=== PATIENT | male | born 1960 | race Caucasian/White ===

== ENCOUNTER 2017-11-23 13:33 | Emergency (ER) | payer OTHER ==
[2017-11-23 13:38] VITALS: TEMP 98.2
--- NOTE | 2017-11-23 14:01 | CPEKG ---
Heart Rate: 87 RR Interval: 690 P-R Interval: 172 QRSD Interval: 88 QT Interval: 384 QTC Interval: 462 P [place]: 45 QRS [place]: -16 T Wave [place]: 27 EKG Severity - OTHERWISE NORMAL ECG - EKG Impression: SINUS RHYTHM EKG Impression: BORDERLINE LEFT AXIS DEVIATION Electronically Signed By: Chapo Rowe 23-Nov-2017 14:28:20
--- NOTE | 2017-11-23 14:05 | EDPHY ---
H & P Time Seen by Provider: 11/23/17 14:05 HPI/ROS: Chief complaint. Chest discomfort HPI. 57-year-old male presents emergency department with chest discomfort. He describes dull pressure left anterior chest discomfort that began yesterday morning. It was present through the day. Was present through the night. When he woke up this morning he thought was gone and then his symptoms recurred again at 9:00 a.m. This morning and have been present. No radiation. No shortness of breath. Discomfort is 1-2 on a scale of 10. He has ridden his bike this morning doing errands and he had no change in his discomfort with riding his bike. No change with breathing or position or movement. Again no change with exertion. He has had previous symptoms about 7 years ago and a normal stress test. he has had no fever or cough. No unusual leg pain or swelling. No abdominal pain. ROS Constitutional. no fever/chills, no weakness Eyes. no problems with vision ENT. no sore throat, no nasal drainage Cardiovascular. Left anterior chest discomfort Respiratory. no shortness of breath, no cough Abdominal. no abdominal pain, no nausea/vomiting, no diarrhea . no problems urinating MS. no calf pain/swelling, no neck/back pain, no joint pain Skin. no rash Lymph. no swollen glands Neuro. no headache, no dizziness, no difficulty walking or with speech Past Medical/Surgical History: Denies past medical history Father NC age 32. No heart disease in his siblings Social History: , nonsmoker, no alcohol Smoking Status: Never smoked Physical Exam: General Appearance: Alert well-developed the male mild distress vital signs are stable Eyes: Pupils equal and round no pallor or injection. ENT, Mouth: Mucous membranes are moist. Respiratory: There are no retractions, lungs are clear to auscultation. Cardiovascular: Regular rate and rhythm. Gastrointestinal: Abdomen is soft and nontender, no masses, bowel sounds normal. Neurological: Awake and alert, sensory and motor exams grossly normal. Skin: Warm and dry, no rashes. Musculoskeletal: Neck is supple nontender. Extremities symmetrical, full range of motion. Psychiatric: Patient is oriented X 3, there is no agitation. Constitutional: Initial Vital Signs Temperature (C) 36.8 C 11/23/17 13:35 Heart Rate 95 11/23/17 13:35 Respiratory Rate 18 11/23/17 13:35 Blood Pressure 124/92 H 11/23/17 13:35 O2 Sat (%) 95 11/23/17 13:35 O2 Delivery Mode Room Air Allergies/Adverse Reactions: No Known Allergies Allergy (Unverified 11/23/17 13:35) Home Medications: Medication Instructions Recorded NK [No Known Home Meds] 11/23/17 Medical Decision Making - Diagnostics EKG Interpretation: EKG interpreted by me shows normal sinus rhythm normal interval. There is left axis deviation. QRS is otherwise normal. There is no significant ST elevation or depression. No arrhythmia. The rate is 87 No previous EKGs for comparison Imaging Results: Imaging Impressions Chest X-Ray 11/23/17 14:14 IMPRESSION: No evidence for acute cardiopulmonary abnormality. One-view chest x-ray interpreted by me is normal Procedures: IV normal saline, monitor ED Course/Re-evaluation: Re-evaluation 3:35 p.m.. Patient is stable. He and I discussed imaging lab EKG findings. We did treatment plan including criteria for return importance of follow-up and further evaluation. He expresses Understanding and agreement. Patient is offered admission as he is leaving for [place] in the morning for further evaluation. He feels that is not necessary and declines. We discussed risks and benefits of this Differential Diagnosis: Patient has had more than 24 hr of continuous chest discomfort. He has a normal workup including normal troponin and EKG. His since are not worse with exertion or breathing. He has had previous stress test that was normal. He does have strong family history but otherwise no personal history of risk factors. While I think that the workup is normal and patient is safe for discharge at this point I did encourage him to follow up with Cardiology in 1 or 2 days for further evaluation. Again the patient is leaving for [place] tomorrow and is encouraged to return tonight for worsening symptoms, follow-up in [place] for worsening symptoms, and follow up with Cardiology upon his return home. - Data Points Laboratory Results: Laboratory Results 11/23/17 13:50 11/23/17 13:50 11/23/17 11/23/17 13:50 13:50 WBC 6.85 10^3/uL 10^3/uL (3.80-9.50) RBC 5.77 10^6/uL 10^6/uL (4.40-6.38) Hgb 17.5 g/dL g/dL (13.7-17.5) Hct 49.9 % % (40.0-51.0) MCV 86.5 fL fL (81.5-99.8) MCH 30.3 pg pg (27.9-34.1) MCHC 35.1 g/dL g/dL (32.4-36.7) RDW 13.1 % % (11.5-15.2) Plt Count 251 10^3/uL 10^3/uL (150-400) MPV 10.9 fL fL (8.7-11.7) Neut % (Auto) 47.8 % % (39.3-74.2) Lymph % (Auto) 39.6 % % (15.0-45.0) [place] % (Auto) 10.1 % % (4.5-13.0) Eos % (Auto) 1.6 % % (0.6-7.6) Baso % (Auto) 0.6 % % (0.3-1.7) Nucleat RBC Rel Count 0.0 % % (0.0-0.2) Absolute Neuts (auto) 3.28 10^3/uL 10^3/uL (1.70-6.50) Absolute Lymphs (auto) 2.71 10^3/uL 10^3/uL (1.00-3.00) Absolute Monos (auto) 0.69 10^3/uL 10^3/uL (0.30-0.80) Absolute Eos (auto) 0.11 10^3/uL 10^3/uL (0.03-0.40) Absolute Basos (auto) 0.04 10^3/uL 10^3/uL (0.02-0.10) Absolute Nucleated RBC 0.00 10^3/uL 10^3/uL (0-0.01) Immature Gran % 0.3 % % (0.0-1.1) Immature Gran # 0.02 10^3/uL 10^3/uL (0.00-0.10) Sodium 145 mEq/L mEq/L (135-145) Potassium 3.9 mEq/L mEq/L (3.5-5.2) Chloride 107 mEq/L mEq/L (97-110) Carbon Dioxide 24 mEq/l mEq/l (22-31) Anion Gap 14 mEq/L mEq/L (8-16) BUN 20 mg/dL mg/dL (7-23) Creatinine 0.8 mg/dL mg/dL (0.7-1.3) Estimated GFR > 60 Glucose 88 mg/dL mg/dL (70-100) Calcium 9.6 mg/dL mg/dL (8.5-10.4) Troponin I < 0.012 ng/mL ng/mL (0.000-0.034) Departure - Departure Disposition: Home, Routine, Self-Care Clinical Impression: Chest pain Qualifiers: Chest pain type: other chest pain Qualified Code(s): R07.89 - Other chest pain ; R07.8 - Other chest pain Condition: Good Instructions: Chest Pain (ED) Additional Instructions: Easy activity. Return for worsening chest discomfort or trouble breathing. Follow up with Cardiology upon return home for further evaluation. Consider aspirin 80 mg daily for circulation. Referrals: NONE *PRIMARY CARE P,. [Primary Care Provider] - As per Instructions Yumiko Asif MD [Medical Doctor] - 2-3 days, call for appt.
[2017-11-23 15:05] LABS: PLATELET COUNT 251 10^3/uL (150-400)
[2017-11-23 16:01] VITALS: BP 122/74; PULSE 64; RESP 16; O2SAT 97
== END 2017-11-23 16:02 | disposition home or self-care (01) ==
DX: R07.89 Other chest pain (principal)